=== PATIENT | female | born 1950 | race Asian ===

== ENCOUNTER 2020-09-28 06:17 | Day surgery (SDC) | payer MEDICARE ==
[~2020-09-28] VITALS: Ht 160 cm; Wt 71.2 kg
[~2020-09-28 06:17] MED LIST: HYZAAR1 TAB PO; LIPITOR20 M1 PO; NORVASC5 M1 PO
[2020-09-28 07:59] VITALS: BP 141/71
== END 2020-09-28 08:11 | disposition home or self-care (01) ==
LOC: ORM 06:17
PROVIDERS: ATTEND Anesthesiology Pain Medicine
DX: M76.31 Iliotibial band syndrome, right leg (principal); Z01.84 Encounter for antibody response examination